=== PATIENT | female | born 1995 | race Caucasian/White ===

== ENCOUNTER 2017-08-21 11:59 | Emergency (ER) | payer OTHER ==
[2017-08-21 12:44] VITALS: BP 108/68
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
[2017-08-21] MEDS ORDERED: Ondansetron ODT TAB* 4 MG PO ONE (13:23)
[2017-08-21] MEDS ORDERED: Ibuprofen TAB* 400 MG PO ONE (13:23)
--- NOTE | 2017-08-21 14:08 | RAD ---
Indication: Right knee injury. 4 views of the right knee demonstrates no fracture. No other bone or joint abnormality is noted. IMPRESSION: No fracture of the right knee is noted. No joint effusion is noted.
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
== END 2017-08-21 14:50 | disposition home or self-care (01) ==
LOC: UCCORT 11:59
DX: S29.012A Strain of muscle and tendon of back wall of thorax, initial encounter (principal); S16.1XXA Strain of muscle, fascia and tendon at neck level, initial encounter; S00.33XA Contusion of nose, initial encounter; S40.012A Contusion of left shoulder, initial encounter; S80.01XA Contusion of right knee, initial encounter; V43.52XA Car driver injured in collision with other type car in traffic accident, initial encounter; Y93.89 Activity, other specified; Y92.410 Unspecified street and highway as the place of occurrence of the external cause; R11.0 Nausea; Z88.1 Allergy status to other antibiotic agents
CPT/HCPCS: 70160; 71020; 72050; 72070; 99213; A9270-GY; G0463

== ENCOUNTER 2018-10-16 18:12 | Emergency (ER) | payer OTHER ==
--- OUTSIDE RECORDS SUMMARY | 2018-10-16 18:44 | XMS REPORT | Continuity of Care Document ---
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 Keisha Beltre PA Primary Care Physician Unavailable Payers Type Date Identification Numbers Payment Provider Subscriber Policy Number: [id number] [place] [employer] Randal Morgan PayID: [id number] [address] [place] [address] Expires: 2018 Policy Number: [id number] Medicaid Randal Morgan PayID: [id number] [address] [place] [address] Advance Directives Description No Information Available Problems Date Description Provider Status Onset: 04/19/2018 Anxiety state Keisha Beltre PA Active Onset: 12/15/2017 Oral contraceptive advice Keisha Beltre PA Active Onset: 12/15/2017 Gastroesophageal reflux disease Keisha Beltre PA Active Onset: 12/15/2017 Headache Keisha Beltre PA Active Family History Date Family Member(s) Problem(s) Comments Father No Current Problems Mother No Current Problems Paternal Grandfather Diabetes Paternal Grandfather due to Liver Disease () Paternal Grandfather Heart Attack Paternal Grandfather Benign Essential Hypertension Paternal Grandfather Stroke Social History Type Date Description Comments Sex Unknown Lives With Father Davion Diet Healthy, Well Balanced 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 Planning on going to [employer]. Tobacco Use Start: Unknown Never Smoked Cigarettes Smoking Status Reviewed: 09/21/18 Never Smoked Cigarettes ETOH Use Rarely consumes alcohol Tobacco Use Start: Unknown Patient denies history of smoking Allergies, Adverse Reactions, Alerts Date Description Reaction Status Severity Comments 12/15/2017 Zithromax Active hives 12/15/2017 Adhesives Active Medications Medication Date Status Form Strength Qnty SIG Indications Ordering Provider Cefdinir 09/21 Hx Capsules 300mg 20cap 1 tab by [email or web address] s mouth MD Jelena - twice a /2019 Methylprednisolone 09/21 Hx TBPK 4mg 21uni take Patrick18.Caden ts tablets MD Jelena - as 09/26 directed- dose pack Benzonatate 09/21 Hx Capsules 200mg 30cap 1 tab by Maciej9 s mouth MD Jelena - three 10/01 times a day Ventolin HFA 09/21 Hx Aerosol 108(90Bas 18gm 2 puffs Patrick18. e) every 4 MD Jelena - mcg/Act hours as 10/21 needed for cough and wheeze Zyrtec Allergy 06/23 Active Tablets 10mg 30tab 1 by Lisette s mouth MD Jelena every day at bedtime Fluticasone 06/23 Active Suspension 50mcg/Act 9.9un 1 spray 30.Caden Bell its to each MD Jelena nare every day Ranitidine HCL 12/15 Active Tablets 150mg 60tab Take 1 K21.9 s Tablet By Rupa Guevara M.D. Twice Daily as Needed Bronson-28 12/15 Active Tablets 0.15-30mg 84tab Take 1 Z30.09 -mcg s Tablet By Rupa Guevara M.D. Once Daily Ortho-Novum 35 00/00 Hx Tablets 1-35mg-mc One po Z30.09 Unknown (28) /0000 g everyday - 12/15 Hair,Skin,Nails 00 Hx three Unknown Multivitamin Gummy /0000 gummies - po daily 06/23 Immunizations CPT Code Status Date Vaccine Lot # [id number] Given 06/23/2018 Influenza Virus Vaccine, Quadrivalent, 36 Mos+, .5ML U-MenB Given 03/31/2017 Meningococcal B,Unspecified U-MenB Given 10/01/2016 Meningococcal B,Unspecified 28472 Given 06/08/2014 Influenza Virus Vaccine, Quadrivalent, 36 Mos+, .5ML U-MCV4 Given 11/23/2013 Meningococcal MCV4,Unspecified U-HepA Given 09/25/2009 Hepatitis A,Unspecified U-MCV4 Given 12/01/2008 Meningococcal MCV4,Unspecified U-HepA Given 12/01/2008 Hepatitis A,Unspecified 83459 Given 04/11/2008 MMR Vaccine, Live, For Subcutaneous Use 09805 Given 12/20/2007 Gardasil 82133 Given 11/19/2007 Gardasil 17778 Given 08/19/2007 Gardasil 34174 Given 06/14/2007 Gardasil 42411 Given 12/27/2006 Tdap injection 10798 Given 12/17/2006 Tdap injection 31457 Given 04/29/2001 MMR Vaccine, Live, For Subcutaneous Use U-DTaP Given 04/29/2001 DTaP,Unspecified U-HepB Given 04/11/1998 Hepatitis B,Unspecified 17216 Given 04/11/1998 MMR Vaccine, Live, For Subcutaneous Use U-Polio Given 03/03/1997 Polio,Unspecified U-HIB Given 03/03/1997 Hib,Unspecified U-DTaP Given 03/03/1997 DTaP,Unspecified U-DTaP Given 1996 DTaP,Unspecified U-HIB Given 1996 Hib,Unspecified U-Polio Given 1996 Polio,Unspecified U-Polio Given 1996 Polio,Unspecified U-HIB Given 1996 Hib,Unspecified U-HepB Given 1996 Hepatitis B,Unspecified U-DTaP Given 1996 DTaP,Unspecified U-Polio Given 1996 Polio,Unspecified U-HIB Given 1996 Hib,Unspecified U-DTaP Given 1996 DTaP,Unspecified U-HepB Given 1996 Hepatitis B,Unspecified Vital Signs Date Vital Result Comment 09/21/2018 1:15pm BP Systolic Sitting Right Arm 106 mmHg BP Diastolic Sitting Right Arm 78 mmHg Body Temperature 98.5 F Heart Rate 88 /min Weight 135.50 lb O2 % BldC Oximetry 98 % 06/23/2018 4:01pm BP Systolic Sitting Left Arm 110 mmHg BP Diastolic Sitting Left Arm 70 mmHg Body Temperature 98.6 F Heart Rate 86 /min Weight 132.12 lb O2 % BldC Oximetry 98 % 04/19/2018 3:08pm BP Systolic 116 mmHg BP Diastolic 72 mmHg Body Temperature 97.1 F Heart Rate 92 /min Respiratory Rate 18 /min Height 62 inches 5'2" Weight 130.00 lb BMI (Body Mass Index) 23.8 kg/m2 BSA (Body Surface Area) 1.59 m2 [place] body weight in kilograms 50 kg O2 % BldC Oximetry 98 % 12/15/2017 3:51pm BP Systolic Sitting Left Arm 118 mmHg BP Diastolic Sitting Left Arm 76 mmHg Body Temperature 99.1 F Heart Rate 70 /min Height 61.5 inches 5'1.50" Weight 128.38 lb BMI (Body Mass Index) 23.9 kg/m2 BSA (Body Surface Area) 1.57 m2 [place] body weight in kilograms 49 kg Last Menstrual Period [id number] O2 % BldC Oximetry 97 % Results Test Date Facility Test Result H/L Range Note CBS 04/19/[address] White Blood 8.2 K/uL N 3.1-10.7 1 W/Automated [address] [place] [address] [phone] Red Blood Count 4.09 M/uL N 3.90-5.40 Hemoglobin 12.5 gm/dL N 11.6-15.8 Hematocrit 37.4 % N 36.0-46.1 Mean Cell Volume 91.4 fl N 80.9-99.0 Mean Corpuscular HGB 30.6 pg N 25.9-32.7 Mean Corpuscular HGB Conc 33.4 g/dL N 30.8-34.3 Platelet Count 412 K/uL High 155-360 Red Cell Distri Width SD 39.4 fl N 3-47 Red Cell Distri Width %CV 12.1 % N 11.7-14.4 Mean Platelet Volume 8.8 fL Low 8.9-12.4 Neut% 51.7 % N 40.4-72.8 Lymph % 37.7 % N 20.0-42.0 [place] % 8.7 % N 4.3-13.2 Eo% 1.7 % N 0.0-6.6 Bas% 0.2 % N 0.0-1.1 Neut# 4.21 K/uL N 1.8-7.0 Lymph # 3.07 K/uL N 1.0-4.0 [place] # 0.71 K/uL N 0.3-0.9 Eos # 0.14 K/uL N 0.0-0.5 Baso # 0.02 K/uL N 0.0-0.1 Comprehensive Metabolic 04/19/[address] [facility] [address] Glucose 90 mg/dL N 74 -106 Panel [address] [place] [address] [phone] BUN 13 mg/dL N 7-18 Creatinine 0.8 mg/dL N 0.6-1.3 Glom Filtration Rate, Estimate >60 mL/min >60 If >60 mL/min >60 2 BUN/Creat 16.2 ratio Sodium 140 mmol/L N 136-145 Potassium 3.9 mmol/L N 3.5-5.1 Chloride 106 mmol/L N 98-107 Carbon Dioxide 27 mmol/L N 21-32 Anion Gap 7 mEq/L Low 8-16 Calcium 8.5 mg/dL N 8.5-10.1 Total Protein 7.7 g/dL N 6.4-8.2 Albumin 3.9 g/dL N 3.4-5.0 Globulin 3.8 g/dL N 1.9-4.3 Alb/Glob 1.0 ratio Bilirubin,Total 0.1 mg/dL Low 0.2-1.0 Sgot/Ast 19 U/L N 15-37 SGPT/Alt 20 U/L N 12-78 Alkaline Phosphatase 43 U/L Low 45-117 Reflex add FT3? Y Reflex add FT4? Y TSH Reflex FT4 04/19/[address] [facility] [address] Thyroid Stim 1.73 uIU/mL N 0.30-4.20 And/Or FT3 [address] [place] [address] [phone] Reflex add FT3? Y Reflex add FT4? Y Urine Dipstick 04/19/2018 [facility] Ua Color light yellow Yellow Ua Clarity clear Clear Ua Leuko neg Negative Ua Nitrite neg Negative Ua Urobilinogen 0.2 0.2 - 1.0 E.U./dL Ua Protein neg Negative Ua PH 7.0 6.5-7.5 Ua Blood +250 High Negative Ua Specific [place] 1.005 Low 1.010-1.030 Ua Ketones neg Negative Ua Bilirubin neg Negative Ua Glucose neg Negative 1 R63.5 2 Note: Persistent reduction for 3 months or more in an eGFR <60 mL/min/1.73 m2 defines CKD. Patients with eGFR values >/=60 mL/min/1.73 m2 may also have CKD if evidence of persistent proteinuria is present. The original MDRD equation for estimated GFR is not valid for patients less than 18 years of age. Additional information may be found at www.kdoqi.org. Procedures Date Code Description Status 06/23/2018 04479 Brief Emotional/Behav Assessment W/ Scoring Doc Per Completed Standard Inst 12/21/2013 80811 Anesthesia, Lower Leg Bone Surgery Open Not Otherwise Spec Completed Encounters Type Date Location Provider Dx Diagnosis Office Visit 06/23/2018 [facility] [facility] Keisha Beltre PA F41.9 Anxiety disorder, 3:45p [place] DEANNE unspecified K21.9 Gastro-esophageal reflux disease without esophagitis J30.9 Allergic rhinitis, unspecified R63.5 Abnormal weight gain Z23 Encounter for immunization M25.559 Pain in unspecified hip Office Visit 04/19/2018 3:15p [facility] Keisha Beltre, Z00.00 Encntr for Marlon SANTOS general adult medical exam w/o abnormal findings R51 Headache K21.9 Gastro-esophageal reflux disease without esophagitis R63.5 Abnormal weight gain M25.559 Pain in unspecified hip F41.9 Anxiety disorder, unspecified Office Visit 12/15/2017 3:45p [facility] Keisha Georges PA R51 Headache K21.9 Gastro-esophageal reflux disease without esophagitis Z30.09 Encounter for oth general coun and advice on contraception Plan of Treatment Future Appointment(s):10/06/2018 1:15 pm - Keisha Beltre PA at [facility]09/21/2018 - Keisha Beltre PAJ18.9 Pneumonia, unspecified organismNew Medication:Cefdinir 300 mg - 1 tab by mouth twice a dayMethylprednisolone 4 mg - take tablets as directed-dose packBenzonatate 200 mg - 1 tab by mouth three times a dayVentolin HFA 108(90 Base) mcg/Act - 2 puffs every 4 hours as needed for cough and wheezeComments:Complete medications as prescribed.Provide plenty of clear fluids. Alternate Tylenol and Motrin as needed. Call office as needed if symptoms worsen or persist longer than expected.Follow up:2 weeks.
--- OUTSIDE RECORDS SUMMARY | 2018-10-16 18:44 | XMS REPORT | Continuity of Care Document ---
:1995 External Reference #:[id number] Author Name Keisha Beltre PA Address [address] [facility] [place] [address] Care Team Providers Name Role Phone Keisha Beltre PA Care Team Information Senior Rd Engineer Unavailable Keisha Beltre PA Primary Care Physician Unavailable Payers Type Date Identification Numbers Payment Provider Subscriber Policy Number: [id number] [place] [employer] Randal Morgan PayID: [id number] [address] [place] [address] Expires: 2018 Policy Number: [id number] Medicaid Randal Morgan PayID: [id number] [address] [place] [address] Advance Directives Description No Information Available Problems [...] Davion Diet Healthy, Well Balanced 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 Planning on going to [employer]. Tobacco Use Start: Unknown Never Smoked Cigarettes Smoking Status Reviewed: 10/06/18 Never Smoked Cigarettes ETOH Use Rarely consumes alcohol Tobacco Use Start: Unknown Patient denies history of smoking Allergies, Adverse Reactions, Alerts Date Description Reaction Status Severity Comments 12/15/2017 Zithromax Active hives 12/15/2017 Adhesives Active Medications Medication Date Status Form Strength Qnty SIG Indications Ordering Provider Ventolin HFA 09/21 Hx Aerosol 108(90Bas 18gm 2 puffs Patrick18Miracle e) every 4 MD Jelena - mcg/Act hours as 10/21 for cough and wheeze Zyrtec Allergy 06/23 Active Tablets 10mg 30tab 1 by Patrick30Miracle s mouth MD Jelena every day at bedtime Fluticasone 06/23 Active Suspension 50mcg/Act 9.9un 1 spray Patrick30.Caden Bell, its to each MD Jelena nare every day Ranitidine HCL 12/15 Active Tablets 150mg 60tab Take 1 K21.9 Kina s Tablet By Jonel Guevara.Laura Twice Daily as Needed Mott-28 12/15 Active Tablets 0.15-30mg 84tab Take 1 Z30.09 Kina, -mcg s Tablet By Jonel Guevara M.D. Once Daily Cefdinir 09/21 Hx Capsules 300mg 20cap 1 tab by Taurus s jonel Bowles MD - twice a /2018 Methylprednisolone 09/21 Hx TBPK 4mg 21uni take J18.Caden Bell ts tablets MD Jelena - as 09/26 directed dose pack Benzonatate 09/21 Hx Capsules 200mg 30cap 1 tab by Taurus Bell s jonel Bowles MD - three 10/01 times a /2018 day Ortho-Novum 35 00/00 Hx Tablets 1-35mg-mc One po Z30.09 Unknown (28) /0000 g everyday - 12/15 Hair,Skin,Nails 00 Hx three Unknown Multivitamin Gummy /0000 gummies - po daily 06/23 Immunizations CPT Code Status Date Vaccine Lot # [id number] Given 06/23/2018 Influenza Virus Vaccine, Quadrivalent, 36 Mos+, .5ML U-MenB Given 03/31/2017 Meningococcal B,Unspecified U-MenB Given 10/01/2016 Meningococcal B,Unspecified 01704 Given 06/08/2014 Influenza Virus Vaccine, Quadrivalent, 36 Mos+, .5ML U-MCV4 Given 11/23/2013 Meningococcal MCV4,Unspecified U-HepA Given 09/25/2009 Hepatitis A,Unspecified U-MCV4 Given 12/01/2008 Meningococcal MCV4,Unspecified U-HepA Given 12/01/2008 Hepatitis A,Unspecified 39934 Given 04/11/2008 MMR Vaccine, Live, For Subcutaneous Use 36586 Given 12/20/2007 Gardasil 79111 Given 11/19/2007 Gardasil 47195 Given 08/19/2007 Gardasil 82777 Given 06/14/2007 Gardasil 30202 Given 12/27/2006 Tdap injection 96847 Given 12/17/2006 Tdap injection 36618 Given 04/29/2001 MMR Vaccine, Live, For Subcutaneous Use U-DTaP Given 04/29/2001 DTaP,Unspecified U-HepB Given 04/11/1998 Hepatitis B,Unspecified 43638 Given 04/11/1998 MMR Vaccine, Live, For Subcutaneous [...] B,Unspecified Vital Signs Date Vital Result Comment 10/06/2018 1:13pm BP Systolic Sitting Left Arm 120 mmHg BP Diastolic Sitting Left Arm 70 mmHg Body Temperature 99.1 F Heart Rate 85 /min Weight 137.12 lb O2 % BldC Oximetry 97 % 09/21/2018 1:15pm BP Systolic Sitting Right Arm [...] kg/m2 BSA (Body Surface Area) 1.59 m2 [place] body weight in kilograms 50 kg O2 % BldC Oximetry 98 % 12/15/2017 3:51pm BP Systolic Sitting Left Arm 118 mmHg BP Diastolic Sitting Left Arm 76 mmHg Body Temperature 99.1 F Heart Rate 70 /min Height 61.5 inches 5'1.50" Weight 128.38 lb BMI (Body Mass Index) 23.9 kg/m2 BSA (Body Surface Area) 1.57 m2 [place] body weight in kilograms 49 kg Last Menstrual Period [id number] O2 % BldC Oximetry 97 % Results Test Date Facility Test Result H/L Range Note CBS 04/19/[address] [facility] [address] White Blood 8.2 K/uL N 3.1-10.7 1 W/Automated [address] [place] [address] [phone] Red Blood Count 4.09 M/uL N 3.90-5.40 [...] 40.4-72.8 Lymph % 37.7 % N 20.0-42.0 [place] % 8.7 % N 4.3-13.2 Eo% 1.7 % N 0.0-6.6 Bas% 0.2 % N 0.0-1.1 Neut# 4.21 K/uL N 1.8-7.0 Lymph # 3.07 K/uL N 1.0-4.0 [place] # 0.71 K/uL N 0.3-0.9 Eos # 0.14 K/uL N 0.0-0.5 Baso # 0.02 K/uL N 0.0-0.1 Comprehensive Metabolic 04/19/2018 [facility] [address] Glucose 90 mg/dL N 74 -106 Panel [address] [place] [address] [phone] BUN 13 mg/dL N 7-18 Creatinine 0.8 [...] add FT4? Y TSH Reflex FT4 04/19/2018 [facility] [address] Thyroid Stim 1.73 uIU/mL N 0.30-4.20 And/Or FT3 [address] [place] [address] [phone] Reflex add FT3? Y Reflex add FT4? Y Urine Dipstick 04/19/2018 [facility] Ua Color light yellow Yellow Ua Clarity clear Clear Ua Leuko neg Negative Ua Nitrite neg Negative Ua Urobilinogen 0.2 0.2 - 1.0 E.U./dL Ua Protein neg Negative Ua PH 7.0 6.5-7.5 Ua Blood +250 High Negative Ua Specific [place] 1.005 Low 1.010-1.030 Ua Ketones neg Negative [...] at [email or web address]. Procedures Date Code Description Status 09/21/2018 36227 Pulse Oximetry Completed 06/23/2018 55912 Brief Emotional/Behav Assessment W/ Scoring Doc Per Completed Standard Inst 12/21/2013 86911 Anesthesia, Lower Leg Bone Surgery Open Not Otherwise Spec Completed Encounters Type Date Location Provider Dx Diagnosis Office Visit 09/21/2018 Family Keisha Huffman PA J18.9 Pneumonia, 1:15p Marlon ALICEA unspecified organism Office Visit 06/23/2018 Keisha Sharma PA F41.9 Anxiety disorder, 3:45p Marlon ALICEA unspecified K21.9 Gastro-esophageal reflux disease without esophagitis J30.9 Allergic rhinitis, unspecified R63.5 Abnormal weight gain Z23 Encounter for immunization M25.559 Pain in unspecified hip Office Visit 04/19/2018 3:15p Family Keisha Huffman, Z00.00 Encntr for Marlon SANTOS general adult medical exam w/o abnormal findings R51 Headache K21.9 Gastro-esophageal reflux disease without esophagitis R63.5 Abnormal weight gain M25.559 Pain in unspecified hip F41.9 Anxiety disorder, unspecified Office Visit 12/15/2017 3:45p Family Keisha Hoover RD, PA R51 Headache K21.9 Gastro-esophageal reflux disease without esophagitis Z30.09 Encounter for oth general coun and advice on contraception Plan of Treatment Future Appointment(s):04/26/2019 1:00 pm - Keisha Beltre PA at [facility] RD10/06/2018 - Keisha Beltre PAJ18.9 Pneumonia, unspecified organismFollow up:PE in April.F41.9 Anxiety disorder, unspecifiedComments:Work on relaxation techniques. Try the Headspace James. Call if symptoms worsen.K21.9 Gastro-esophageal reflux disease without esophagitisComments:Limit spicy and acidic foods in the diet. Eat small meals and snacks. Avoid eating just prior to bedtime. Elevated the head of the bed to reduce nighttime symptoms. Call if symptoms worsen.
[2018-10-16 18:49] VITALS: BP 128/84
--- NOTE | 2018-10-16 18:58 | UC ---
Respiratory Complaint HPI - HPI Summary HPI Summary: 3 wks hx of cough which was recently tx'd for pneumonia. She cont. w/ irritating cough and a fever at some point which has since resolved. Occasional sinus pressure and post nasal drip. at one pint she did note some blood when she was coughing but feels it was from post nasal drip. also starting to lose her voice. gets ferguson after coughing. - History of Current Complaint Chief Complaint: UCRespiratory Stated Complaint: SINUS/COUGH Time Seen by Provider: 10/16/18 18:47 Hx Obtained From: Patient Hx Last Menstrual Period: 10/11/18 Onset/Duration: Gradual Onset - 3 wks Pain Intensity: 0 Pain Scale Used: 0-10 Numeric Associated Signs And Symptoms: Positive: URI. Negative: Wheezing - Allergies/Home Medications Allergies/Adverse Reactions: Allergies Allergy/AdvReac Type Severity Reaction Status Date / Time azithromycin [From Zithromax] Allergy Hives Verified 10/16/18 18:46 Home Medications: Home Medications Acetaminophen [Acetaminophen Extra Strength] 500 mg PO Q6H PRN 10/16/18 [ History Confirmed 10/16/18] Cetirizine* [ZyrTEC 10 MG TAB*] 10 mg PO DAILY 10/16/18 [History Confirmed 10/16] Ranitidine TAB (NF) [Zantac TAB (NF)] 150 mg PO BID 10/16/18 [History Confirmed 10/16/18] PMH/Surg Hx/FS Hx/Imm Hx - Surgical History Surgical History: Yes Surgery Procedure, Year, and Place: RIGHT footx2. LEFT foot - Social History Alcohol Use: Rare Substance Use Type: None Smoking Status (MU): Never Smoked Tobacco - Immunization History Most Recent Influenza Vaccination: no Review of Systems All Other Systems Reviewed And Are Negative: Yes Skin: Negative: Rash Respiratory: Positive: Cough Physical Exam Vital Signs: Initial Vital Signs Temp 99.3 F 10/16/18 18:44 Pulse 97 10/16/18 18:44 Resp 17 10/16/18 18:44 BP 128/84 10/16/18 18:44 Pulse Ox 100 10/16/18 18:44 Diagnostic Evaluation - Laboratory O2 Sat by Pulse Oximetry: 100 Respiratory Course/Dx - Course Course Of Treatment: 3 wk hx of cough w/ recent completion of antibx. Cough persists and has post nasal drip w/ some blood tinged mucus. LUngs clear and plan is to give a steroid taper for reactie airway process. good vitals. - Differential Dx/Diagnosis Differential Diagnosis/HQI/PQRI: Bronchitis, Lower Resp Infection, Sinusitis Provider Diagnosis: Reactive airway disease Discharge - Sign-Out/Discharge Documenting (check all that apply): Patient Departure All imaging exams completed and their final reports reviewed: No Studies - Discharge Plan Condition: Good Disposition: HOME Prescriptions: predniSONE TAB* [Deltasone 20 MG TAB*] 20 mg PO DAILY 8 Days #15 tab Patient Education Materials: Reactive Airways Disease (ED) Referrals: Keisha Beltre PA [Primary Care Provider] - Additional Instructions: follow up with your pcp if symptoms persist - Billing Disposition and Condition Condition: GOOD Disposition: Home
[2018-10-16 19:24] LABS: Influenza A Molecular NEGATIVE (Negative); Influenza B Molecular NEGATIVE (Negative)
[2018-10-16] MEDS ORDERED: predniSONE TAB* 20 MG PO ONE (19:29)
== END 2018-10-16 19:45 | disposition home or self-care (01) ==
LOC: UCCORT 18:12
DX: J45.909 Unspecified asthma, uncomplicated (principal); R09.82 Postnasal drip; Z88.1 Allergy status to other antibiotic agents; Z87.01 Personal history of pneumonia (recurrent)
CPT/HCPCS: 71046; 99212; G0463; J7512